=== PATIENT | female | born 1945 | race Caucasian/White ===

== ENCOUNTER 2020-07-17 09:42 | Emergency (ER) | payer MEDICARE, OTHER ==
[~2020-07-17 09:42] MED LIST: ANORO ELLIPTA1 EACH INH; ASPIR 8181 MG PO; COREG 25MG TAB25 MG PO; HABITROL 21 MG P1 EA TD; IPRAT-ALBUT 0.5-3 ML INH; LEVAQUIN500 MG PO; MEDROL DOSEPAK 24 MG PO; NORVASC 5 MG TAB5 MG PO; PLAVIX75 MG PO; PULMICORT0.25 MG/1 INH
[2020-07-17 11:12] LABS: HEMOGLOBIN 12.8 gm/dl (12.3-15.3); RED BLOOD COUNT 4.01 M/UL (4.00-5.10); WHITE BLOOD COUNT 6.2 K/UL (4.5-11.0)
[2020-07-17 11:29] LABS: BUN/CREATININE RATIO 18 (0-10)
[2020-07-17] MEDS ORDERED: HYDROCODON-ACE1 EAC4 PO (14:30)
== END 2020-07-17 14:50 | disposition home or self-care (01) ==
LOC: ER1 09:42
PROVIDERS: Emergency Medicine
DX: I71.2 Thoracic aortic aneurysm, without rupture (principal); R91.1 Solitary pulmonary nodule; M54.6 Pain in thoracic spine; J44.9 Chronic obstructive pulmonary disease, unspecified; I25.10 Atherosclerotic heart disease of native coronary artery without angina pectoris; F17.210 Nicotine dependence, cigarettes, uncomplicated; Z88.8 Allergy status to other drugs, medicaments and biological substances; Z95.5 Presence of coronary angioplasty implant and graft
CPT/HCPCS: 71046; 72072; 80053; 81001; 82550; 82553; 83874; 84484; 85025; 85379; 93005; 99285; Q9967

== ENCOUNTER 2020-10-10 21:38 | Emergency (ER) | payer MEDICARE, OTHER ==
[~2020-10-10 21:38] MED LIST changes: +HYDROCODON-ACE1 EAC4 PO
== END 2020-10-10 23:11 | disposition left against medical advice (07) ==
LOC: ER1 21:38
DX: Z53.21 Procedure and treatment not carried out due to patient leaving prior to being seen by health care provider (principal)

== ENCOUNTER → 2021-09-27 | Outpatient (CLI) | payer MEDICARE, OTHER | LOC: HEART 5 08:03 | DX: I20.9 Angina pectoris, unspecified (principal) | CPT/HCPCS: 78452; 93306; A9502; J2785 ==

== ENCOUNTER → 2021-10-14 | Outpatient (CLI) | payer MEDICARE, OTHER | LOC: CT 13:15 | DX: R06.00 Dyspnea, unspecified (principal); R91.1 Solitary pulmonary nodule; I71.2 Thoracic aortic aneurysm, without rupture; J43.9 Emphysema, unspecified | CPT/HCPCS: 71275; Q9965 ==

== ENCOUNTER → 2021-10-25 | Outpatient (CLI) | payer MEDICARE, OTHER | LOC: MAMO 13:53 | DX: Z12.31 Encounter for screening mammogram for malignant neoplasm of breast (principal) | CPT/HCPCS: 77063; 77067 ==

== ENCOUNTER 2021-12-29 17:02 | Emergency (ER) | payer MEDICARE, OTHER ==
[~2021-12-29] VITALS: Ht 165.1 cm; Wt 43.1 kg
[2021-12-29 18:21] LABS: HEMOGLOBIN 11.8 gm/dl (12.3-15.3); RED BLOOD COUNT 3.91 M/UL (4.00-5.10); WHITE BLOOD COUNT 4.2 K/UL (4.5-11.0)
[2021-12-29 19:00] LABS: BUN/CREATININE RATIO 14 (0-10)
[2021-12-29] MEDS ORDERED: BENZONATATE200 MG PO (21:01)
[2021-12-29] MEDS ORDERED: MEDROL4 MG PO (21:01)
== END 2021-12-29 21:57 | disposition home or self-care (01) ==
LOC: ER1 17:02
PROVIDERS: Nurse Practitioner
DX: U07.1 COVID-19 (principal); J44.9 Chronic obstructive pulmonary disease, unspecified; I25.2 Old myocardial infarction; F17.210 Nicotine dependence, cigarettes, uncomplicated; I25.10 Atherosclerotic heart disease of native coronary artery without angina pectoris; Z79.82 Long term (current) use of aspirin; Z88.8 Allergy status to other drugs, medicaments and biological substances
CPT/HCPCS: 0240U; 71045; 80053; 82550; 82553; 83605; 84484; 85025; 85610; 85652; 85730; 86140; 87040; 93005; 94664; 96374; 96375; 99285; J0696; J2930; M0222